=== PATIENT | female | born 1955 | race Hispanic/Latino ===

== ENCOUNTER 2020-02-13 14:25 | Emergency (ER) | payer OTHER ==
--- NOTE | 2020-02-13 15:38 | ER ---
Nurse's Notes [facility] Name: Linnea Morse Age: 65 yrs Sex: Female : 1955 Arrival Date: 02/13/2020 Time: 14:25 Bed 6 Private MD: Diagnosis: Laceration without foreign body of left thumb with damage to nail-avulsion Presentation: 02/12 14:47 Chief complaint: Patient states: Laceration to tip of L thumb that occurred 2-3 hours ss ago. Pt tried to stop the bleeding at home with a pressure dressing, but reports as soon as she took it off it would start to bleed again. Coronavirus screen: Client denies travel out of the [place] in the last 14 days. Ebola Screen: Patient denies exposure to infectious person. Patient denies travel to an Ebola-affected area in the 21 days before illness onset. Initial Sepsis Screen: Does the patient meet any 2 criteria? No. Patient's initial sepsis screen is negative. Does the patient have a suspected source of infection? No. Patient's initial sepsis screen is negative. Risk Assessment: Do you want to hurt yourself or someone else? Patient reports no desire to harm self or others. Onset of symptoms was February 13, 2020. 14:47 Method Of Arrival: Ambulatory ss 14:47 Acuity: PETROS 4 ss Historical: - Allergies: 14:48 Codeine; ss - Immunization history:: Adult Immunizations up to date, Last tetanus immunization: < 10 years ago. - Social history:: Smoking status: Patient denies any tobacco usage or history of. Screenin:50 Abuse screen: Denies threats or abuse. Nutritional screening: No deficits noted. tw2 Tuberculosis screening: No symptoms or risk factors identified. Fall Risk None identified. Assessment: 15:24 General: Appears in no apparent distress. slender, well groomed, Behavior is calm, tw2 cooperative, appropriate for age. Pain: Denies pain. Neuro: Level of Consciousness is awake, alert, obeys commands, Oriented to person, place, time, situation. Cardiovascular: Patient's skin is warm and dry. Respiratory: Airway is patent Respiratory effort is even, unlabored, Respiratory pattern is regular, symmetrical. GI: No signs and/or symptoms were reported involving the gastrointestinal system. : No signs and/or symptoms were reported regarding the genitourinary system. EENT: No signs and/or symptoms were reported regarding the EENT system. Derm: No signs and/or symptoms reported regarding the dermatologic system. Musculoskeletal: Circulation, motion, and sensation intact. Range of motion: intact in all extremities. Injury Description: Laceration sustained to left hand and dorsal aspect of distal phalanx of left thumb. 15:59 Reassessment: Patient appears in no apparent distress at this time. No changes from tw2 previously documented assessment. Patient and/or family updated on plan of care and expected duration. Pain level reassessed. Patient is alert, oriented x 3, equal unlabored respirations, skin warm/dry/pink. Vital Signs: 14:47 BP 138 / 94; Pulse 64; Resp 14; Temp 98.3(TE); Pulse Ox 99% on R/A; Weight 64.41 kg; Height 5 ft. 4 in. (162.56 cm); Pain 1/10; 15:59 BP 126 / 82; Pulse 61; Resp 16; Pulse Ox 100% on R/A; tw2 14:47 Body Mass Index 24.37 (64.41 kg, 162.56 cm) ED Course: 14:25 Patient arrived in ED. ag5 14:48 Triage completed. 14:48 Arm band placed on right wrist. 15:25 Bed in low position. Call light in reach. Pulse ox on. NIBP on. tw2 15:26 Yelena Stout [facility]-C [facility]. kb 15:26 Harjeet Arizmendi MD is Attending Physician. kb 15:48 Janessa West RN is Primary Nurse. tw2 15:59 No provider procedures requiring assistance completed. Patient did not have IV access tw2 during this emergency room visit. Administered Medications: No medications were administered Outcome: 15:37 Discharge ordered by . kb 15:59 Discharged to home ambulatory. tw2 15:59 Condition: stable 15:59 Discharge instructions given to patient, Instructed on discharge instructions, follow up and referral plans. Demonstrated understanding of instructions, follow-up care, wound care. 15:59 Patient left the ED. tw2 Signatures: Yelena Stout FNP-C FNP-Ckb Smirch, Shelby, RN RN Janessa West RN RN tw2 Shaun Kendrick ag5
--- NOTE | 2020-02-13 15:38 | EDPHYS ---
Physician Documentation [facility] Name: Linnea Morse Age: 65 yrs Sex: Female : 1955 Arrival Date: 02/13/2020 Time: 14:25 Bed 6 Private MD: ED Physician Harjeet Arizmendi HPI: 02/12 15:32 This 65 yrs old Female presents to ER via Ambulatory with complaints of Finger kb Laceration. 15:34 The patient has a laceration related to: cooking, from a knife, occurred at home, and kb there are no complicating factors. The injury was accidental. The laceration(s) is(are) located on the dorsal aspect of distal phalanx of left thumb. Onset: The symptoms/episode began/occurred this morning. Associated signs and symptoms: Pertinent positives: heavy bleeding, Pertinent negatives: deformity, dizziness, loss of consciousness, numbness distal to injury, suspected foreign body. The patient has not experienced similar symptoms in the past. The patient has not recently seen a physician. Pt reports she accidentally cut a piece of her finger off with a knife this morning. Held pressure for 20 minutes but the bleeding didn't stop so she came in.. Historical: - Allergies: 14:48 Codeine; ss - Immunization history:: Adult Immunizations up to date, Last tetanus immunization: < 10 years ago. - Social history:: Smoking status: Patient denies any tobacco usage or history of. ROS: 15:32 Constitutional: Negative for fever, chills, and weight loss, Cardiovascular: Negative kb for chest pain, palpitations, and edema, Respiratory: Negative for shortness of breath, cough, wheezing, and pleuritic chest pain, Abdomen/GI: Negative for abdominal pain, nausea, vomiting, diarrhea, and constipation, MS/Extremity: Negative for injury and deformity, Neuro: Negative for headache, weakness, numbness, tingling, and seizure. 15:32 Skin: Positive for laceration(s), of the dorsal aspect of distal phalanx of left thumb. Exam: 15:32 Constitutional: This is a well developed, well nourished patient who is awake, alert, kb and in no acute distress. Head/Face: Normocephalic, atraumatic. Chest/axilla: Normal chest wall appearance and motion. Nontender with no deformity. No lesions are appreciated. Cardiovascular: Regular rate and rhythm with a normal S1 and S2. No gallops, murmurs, or rubs. Normal PMI, no JVD. No pulse deficits. Respiratory: Lungs have equal breath sounds bilaterally, clear to auscultation and percussion. No rales, rhonchi or wheezes noted. No increased work of breathing, no retractions or nasal flaring. Abdomen/GI: Soft, non-tender, with normal bowel sounds. No distension or tympany. No guarding or rebound. No evidence of tenderness throughout. MS/ Extremity: Pulses equal, no cyanosis. Neurovascular intact. Full, normal range of motion. Neuro: Awake and alert, GCS 15, oriented to person, place, time, and situation. Cranial nerves II-XII grossly intact. Motor strength 5/5 in all extremities. Sensory grossly intact. Cerebellar exam normal. Normal gait. 15:32 Skin: injury, avulsion(s), a small of the dorsal aspect of distal phalanx of left thumb. Vital Signs: 14:47 BP 138 / 94; Pulse 64; Resp 14; Temp 98.3(TE); Pulse Ox 99% on R/A; Weight 64.41 kg; ss Height 5 ft. 4 in. (162.56 cm); Pain 1/10; 15:59 BP 126 / 82; Pulse 61; Resp 16; Pulse Ox 100% on R/A; tw2 14:47 Body Mass Index 24.37 (64.41 kg, 162.56 cm) ss MDM: 15:26 Patient medically screened. kb 15:34 Data reviewed: vital signs, nurses notes. Data interpreted: Pulse oximetry: on room air kb is 99 %. Interpretation: normal. Counseling: I had a detailed discussion with the patient and/or guardian regarding: the historical points, exam findings, and any diagnostic results supporting the discharge/admit diagnosis, the need for outpatient follow up, a family practitioner, to return to the emergency department if symptoms worsen or persist or if there are any questions or concerns that arise at home. 15:35 ED course: Pressure dressing from triage removed, no active bleeding noted. Surgicel kb and tube gauze applied. Pt educated to keep in place until tomorrow.. Administered Medications: No medications were administered Disposition: 17:33 Co-signature as Attending Physician, Harjeet Arizmendi MD. rn Disposition: 02/13/20 15:37 Discharged to Home. Impression: Laceration without foreign body of left thumb with damage to nail - avulsion. - Condition is Stable. - Discharge Instructions: Deep Skin Avulsion. - Medication Reconciliation Form, Thank You Letter, Antibiotic Education, Prescription Opioid Use form. - Follow up: Emergency Department; When: As needed; Reason: Worsening of condition. Follow up: Private Physician; When: 2 - 3 days; Reason: Recheck today's complaints, Continuance of care, Re-evaluation by your physician. Signatures: Yelena Stout, MARINE RESOURCE ECONOMIST-C MARINE RESOURCE ECONOMIST-Ckb Harjeet Arizmendi MD MD rn Smirch, Shelby, RN RN ss Wise, Tara, RN RN tw2 Corrections: (The following items were deleted from the chart) 15:59 15:37 02/13/2020 15:37 Discharged to Home. Impression: Laceration without foreign body tw2 of left thumb with damage to nail - avulsion. Condition is Stable. Forms are Medication Reconciliation Form, Thank You Letter, Antibiotic Education, Prescription Opioid Use. Follow up: Emergency Department; When: As needed; Reason: Worsening of condition. Follow up: Private Physician; When: 2 - 3 days; Reason: Recheck today's complaints, Continuance of care, Re-evaluation by your physician. kb
[2020-02-13 16:04] VITALS: TEMP 98.3
[2020-02-13 16:05] VITALS: BP 126/82; O2SAT 100
== END 2020-02-13 15:59 | disposition home or self-care (01) ==
LOC: ER 14:25
DX: S61.112A Laceration without foreign body of left thumb with damage to nail, initial encounter (principal); W26.0XXA Contact with knife, initial encounter; Y93.G3 Activity, cooking and baking; Y92.000 Kitchen of unspecified non-institutional (private) residence as the place of occurrence of the external cause; Z88.5 Allergy status to narcotic agent
CPT/HCPCS: 99283

== ENCOUNTER 2020-05-27 15:08 | Emergency (ER) | payer SELFPAY ==
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
[2020-05-27 19:51] VITALS: BP 152/90; TEMP 98; O2SAT 99
== END 2020-05-27 19:47 | disposition left against medical advice (07) ==
LOC: ER 15:08
DX: Z53.21 Procedure and treatment not carried out due to patient leaving prior to being seen by health care provider (principal)
CPT/HCPCS: 99281

== ENCOUNTER 2021-02-28 13:28 | Emergency (ER) | payer OTHER ==
[2021-02-28] MEDS ORDERED: LIDOCAINE 2% MPF 5 ML VIAL ONE (14:23)
--- NOTE | 2021-02-28 14:42 | ER ---
Nurse's Notes [facility] Name: Linnea Morse Age: 66 yrs Sex: Female : 1955 Arrival Date: 02/28/2021 Time: 13:30 Bed 27 Private MD: Diagnosis: Laceration without foreign body of left index finger without damage to nail Presentation: 02/28 13:40 Chief complaint: Patient states: "I was cutting a carrot with a knife and it slipped vg1 and cut my finger". Incident occurred about 10 minutes ago. Left index finger bleeding; site cleaned and bandaged. Coronavirus screen: Vaccine status: Patient reports being unvaccinated. Ebola Screen: Patient negative for fever greater than or equal to 101.5 degrees Fahrenheit, and additional compatible Ebola Virus Disease symptoms. Initial Sepsis Screen: Does the patient meet any 2 criteria? No. Patient's initial sepsis screen is negative. Does the patient have a suspected source of infection? No. Patient's initial sepsis screen is negative. Risk Assessment: Do you want to hurt yourself or someone else? Patient reports no desire to harm self or others. Onset of symptoms was February 28, 2021. 13:40 Method Of Arrival: Ambulatory vg1 13:40 Acuity: PETROS 4 vg1 Triage Assessment: 13:42 General: Appears in no apparent distress. comfortable, Behavior is calm, cooperative. vg1 Pain: Complains of pain in palmar aspect of distal phalanx of left index finger Pain currently is 4 out of 10 on a pain scale. Injury Description: Laceration sustained to palmar aspect of distal phalanx of left index finger. Historical: - Allergies: 13:42 Codeine; vg1 - Home Meds: 13:42 None [Active]; vg1 - PMHx: 13:42 None; vg1 - PSHx: 13:42 None; vg1 - Immunization history:: Adult Immunizations up to date, Client reports having NOT received the Covid vaccine. - Social history:: Smoking status: Patient denies any tobacco usage or history of. Screenin:43 Abuse screen: Denies threats or abuse. Nutritional screening: No deficits noted. vg1 Tuberculosis screening: No symptoms or risk factors identified. Fall Risk No fall in past 12 months (0 pts). No secondary diagnosis (0 pts). No IV (0 pts). Ambulatory Aid- None/Bed Rest/Nurse Assist (0 pts). Gait- Normal/Bed Rest/Wheelchair (0 pts) Mental Status- Oriented to own ability (0 pts). Total Alcala Fall Scale indicates No Risk (0-24 pts). Vital Signs: 13:40 BP 163 / 84; Pulse 70; Resp 16; Temp 98.0; Pulse Ox 99% ; Weight 65.77 kg; Height 5 ft. vg1 3 in. (160.02 cm); Pain 4/10; 13:40 Body Mass Index 25.69 (65.77 kg, 160.02 cm) vg1 ED Course: 13:30 Patient arrived in ED. rg4 13:34 Kierra Cueva, RN is Primary Nurse. tr6 13:38 Keegan Julian NP is PHCP. pm1 13:39 Harjeet Arizmendi MD is Attending Physician. pm1 13:42 Triage completed. vg1 13:42 Arm band placed on. vg1 13:43 Patient has correct armband on for positive identification. Bed in low position. Call vg1 light in reach. Side rails up X 1. Adult w/ patient. 13:43 Patient did not have IV access during this emergency room visit. vg1 14:42 Flavio Dominguez MD is Referral Physician. pm1 14:55 No provider procedures requiring assistance completed. tr6 Administered Medications: 14:54 Drug: Lidocaine (1 %) 5 ml {Note: administered by MIGUE Julian.} Volume: 5 ml; Route: tr6 Infiltration; Outcome: 14:41 Discharge ordered by . pm1 14:55 Discharged to home ambulatory. tr6 14:55 Condition: improved 14:55 Discharge instructions given to patient, family, Instructed on discharge instructions, follow up and referral plans. medication usage, safety practices, Demonstrated understanding of instructions, follow-up care, medications, Prescriptions given X 2. 14:56 Patient left the ED. tr6 Signatures: Keegan Julian NP HAND INSERTER OPERATOR pm1 Marta Cardenas rg4 Leilani Cardenas RN RN vg1 Kierra Cueva RN RN tr6
--- NOTE | 2021-02-28 14:43 | EDPHYS ---
Physician Documentation [facility] Name: Linnea Morse Age: 66 yrs Sex: Female : 1955 Arrival Date: 02/28/2021 Time: 13:30 Bed 27 Private MD: ED Physician Harjeet Arizmendi HPI: 02/28 14:41 This 66 yrs old Female presents to ER via Ambulatory with complaints of Finger pm1 Laceration. 14:41 The patient or guardian reports a laceration. The complaints affect the left hand and pm1 palmar aspect of distal phalanx of left index finger. Context: The problem was sustained at home, resulted from Accidental finger laceration while cutting carrots. Onset: The symptoms/episode began/occurred just prior to arrival. Modifying factors: The symptoms are alleviated by pressure to area, the symptoms are aggravated by nothing. Associated signs and symptoms: Pertinent negatives: cyanosis distally, decreased sensation distally, numbness distally, tingling distally. Severity of symptoms: in the emergency department the symptoms have improved. The patient has not experienced similar symptoms in the past. The patient has not recently seen a physician. Patient reports tetanus less than 5 years. Historical: - Allergies: 13:42 Codeine; vg1 - Home Meds: 13:42 None [Active]; vg1 - PMHx: 13:42 None; vg1 - PSHx: 13:42 None; vg1 - Immunization history:: Adult Immunizations up to date, Client reports having NOT received the Covid vaccine. - Social history:: Smoking status: Patient denies any tobacco usage or history of. ROS: 14:41 Constitutional: Negative for fever, chills, and weight loss, Cardiovascular: Negative pm1 for chest pain, palpitations, and edema, Respiratory: Negative for shortness of breath, cough, wheezing, and pleuritic chest pain, MS/Extremity: Negative for injury and deformity. 14:41 Neuro: Negative for headache, weakness, numbness, tingling, and seizure. 14:41 Skin: Positive for laceration(s), of the palmar aspect of distal phalanx of left index finger. 14:41 All other systems are negative. Exam: 14:41 Constitutional: This is a well developed, well nourished patient who is awake, alert, pm1 and in no acute distress. Head/Face: Normocephalic, atraumatic. 14:41 Eyes: Exam is negative for acute changes, Extraocular movements: no acute changes, Sclera: no acute changes, icterus, is not appreciated. 14:41 ENT: Exam is negative for acute changes, Mouth: no acute changes, Lips: normal, moist, Oral mucosa: normal, pink and intact, moist. 14:41 Cardiovascular: Exam negative for acute changes, Rate: normal, Rhythm: regular, Pulses: no pulse deficits are appreciated. 14:41 Respiratory: Exam negative for acute changes, respiratory distress, shortness of breath. 14:41 Musculoskeletal/extremity: Extremities: grossly normal except: noted in the palmar aspect of distal phalanx of left index finger: laceration, There is no evidence of decreased ROM, deformity, Circulation is intact in all extremities. 14:41 Skin: Appearance: normal except for affected area, injury, laceration(s), the wound is approximately 1.5 cm(s), of the palmar aspect of distal phalanx of left index finger. Vital Signs: 13:40 BP 163 / 84; Pulse 70; Resp 16; Temp 98.0; Pulse Ox 99% ; Weight 65.77 kg; Height 5 ft. vg1 3 in. (160.02 cm); Pain 4/10; 13:40 Body Mass Index 25.69 (65.77 kg, 160.02 cm) vg1 Laceration: 14:39 Wound Repair of 1.5cm ( 0.6in ) subcutaneous laceration to left hand and palmar aspect pm1 of distal phalanx of left index finger. Linear shaped.. Distal neuro/vascular/tendon intact. Anesthesia: Digital block administered with 1 mls of 1% lidocaine. Wound prep: Extensive cleansing with hibiclenz by tn, Wound irrigation with saline by tn, Wound explored extensively, Copious irrigation. Skin closed with 4 4-0 Prolene using simple sutures and sterile technique. Dressed with Neosporin, 4x4's. Patient tolerated well. MDM: 13:39 Patient medically screened. pm1 14:40 Data reviewed: vital signs. Data interpreted: Pulse oximetry: on room air is 99 %. pm1 Interpretation: normal. Counseling: I had a detailed discussion with the patient and/or guardian regarding: the historical points, exam findings, and any diagnostic results supporting the discharge/admit diagnosis, the need for outpatient follow up, to return to the emergency department if symptoms worsen or persist or if there are any questions or concerns that arise at home. 02/28 13:56 Order name: Dressing - Wound; Complete Time: 14:54 pm1 02/28 13:56 Order name: Gloves, Sterile; Complete Time: 14:54 pm1 02/28 13:56 Order name: Prolene, Sutures; Complete Time: 14:54 pm1 02/28 13:56 Order name: Setup Suture Tray; Complete Time: 13:57 pm1 Administered Medications: 14:54 Drug: Lidocaine (1 %) 5 ml {Note: administered by MIGUE Julian.} Volume: 5 ml; Route: tr6 Infiltration; Disposition Summary: 02/28/21 14:41 Discharge Ordered Location: Home pm1 Problem: new pm1 Symptoms: have improved pm1 Condition: Stable pm1 Diagnosis - Laceration without foreign body of left index finger without damage to nail pm1 Followup: pm1 - With: Emergency Department - When: As needed - Reason: Worsening of condition Followup: pm1 - With: Private Physician - When: 10 - 14 days - Reason: Recheck today's complaints, Continuance of care, Staple/Suture removal, Re-evaluation by your physician Followup: pm1 - With: Flavio Dominguez MD - When: 2 - 3 days - Reason: Wound Recheck, Recheck today's complaints, Continuance of care, Re-evaluation by your physician Discharge Instructions: - Discharge Summary Sheet pm1 - Laceration Care, Adult pm1 Forms: - Medication Reconciliation Form pm1 - Thank You Letter pm1 - Antibiotic Education pm1 - Prescription Opioid Use pm1 Prescriptions: - Cephalexin 500 mg Oral Capsule - take 1 capsule by ORAL route every 12 hours for 10 days; 20 capsule; Refills: pm1 0, Product Selection Permitted Addendum: 03/04/2021 00:02 Co-signature as Attending Physician, Harjeet Arizmendi MD I agree with the assessment and r n plan of care. Attestation: The patient's history, exam findings, diagnostics, and a summary of any interventions or procedures was reviewed in detail with Keegan Julian NP. Signatures: Harjeet Arizmendi MD MD rn Marinas, Patrick, NP NP pm1 Leilani Cardenas RN RN vg1 Kierra Cueva, RN RN tr6
[2021-02-28 15:00] VITALS: BP 163/84; TEMP 98; O2SAT 99
== END 2021-02-28 14:56 | disposition home or self-care (01) ==
LOC: ER 13:28
PROC: 0HQGXZZ Repair Left Hand Skin, External Approach (ICD-10-PCS; principal; 2021-02-28)
DX: S61.211A Laceration without foreign body of left index finger without damage to nail, initial encounter (principal); W26.0XXA Contact with knife, initial encounter; Y93.G1 Activity, food preparation and clean up; Y92.009 Unspecified place in unspecified non-institutional (private) residence as the place of occurrence of the external cause; Z88.6 Allergy status to analgesic agent
CPT/HCPCS: 99283

== ENCOUNTER → 2023-05-17 | Day surgery (SDC) | payer BC, OTHER ==
--- NOTE | 2023-05-17 13:22 | RAD REPORT ---
EXAM DESCRIPTION: Ultrasound-guided vacuum assisted right breast core biopsy CLINICAL HISTORY: R92.8 COMPARISON: Follow Up Breast Axilla Comp dated 03/17/2023 FINDINGS: Informed consent was obtained and time-out procedure was performed. The patient's right breast was prepped and draped in the usual sterile fashion. 1% lidocaine was used for local anesthetic purposes. Initial scanning again demonstrated the taller than wide hypoechoic structure in the central aspect o f the breast approximately at 2 o'clock position. A small skin georgie was performed. Utilizing aseptic technique and ultrasound guidance, a 12 gauge vacuum assisted core biopsy device was used to obtain 3 core specimens through the mass of interest. A post biopsy clip was then placed. All collected material was sent for pathology. Patient tolerated procedure well. There was mild bleed ing from the incision during the procedure, less than 10 mL. IMPRESSION: Successful ultrasound guided vacuum assisted right breast mass biopsy, with postprocedur al clip placement.
== END ==
LOC: DS 08:47
PROVIDERS: ATTEND Internal Medicine
DX: R92.8 Other abnormal and inconclusive findings on diagnostic imaging of breast (principal)
CPT/HCPCS: 19083; 88305

== ENCOUNTER 2024-08-10 14:52 | Emergency (ER) | payer OTHER ==
--- OUTSIDE RECORDS SUMMARY | 2024-08-10 14:55 | XMS REPORT | Continuity of Care Document ---
Author Name Unknown Address [address] [facility] [address] [place] [address] [facility] Address [address] [facility] [address] [place] [address] Care Team Providers Care Telecine Operator Name Role Phone JORGE CANALES Primary Care Physician Unavailab le RADIOLOGY Attending Clinician Unavailable Radiology Attending Clinician Unavailable JORGE CANALES Admitting Clinician Unavailable Payers Payer Name Policy Type Policy Number Effective Date Expirati on Date Source [facility] [place] [id number] 2023 00:00:00 Allergies, Adverse Reactions, Alerts Allergy Name Allergy Type Status Severity Reaction(s) Onset Date Inactive Date Treating Clinician Comments Source NO KNOWN ALLERGIE S Drug Class Active [facility] Social History Social Habit Start Date Stop Date Quantity Comments Source Sexual orientation U [facility] Sex assigned at 1955 00:00:00 1955 00:00:00 [facility] Smoking Status Start Date Stop Date Source Tobacco smoking consumption unknown [facility] Procedures Procedure Date / Time Performed Performing Clinician Source BI SCREENING TOMOSYNTHESIS BILATERAL 2024-02-29 14:52:03 Jorge Canales [facility] Encounters Start Date/Time End Date/Time Encounter Type Admission Type Attending Clinicians Care Facility Care Department Encounter ID Source 2024-02-29 07:53:23 2024-02-29 23:59:00 Outpatient R RADIOLOGY [facility] [id number] [facility] 2024-02-29 07:53:23 2024-02-29 23:59:00 Hospital Encounter Radiology Radiology [facility] [id number] [facility] Results Test Description Test Time Test Comments Results Resul t Comments Source BI SCREENING TOMOSYNTHESIS BILATERAL 2024-02-20 02:27:54 Examination:BI SCREENING TOMOSYNTHESIS BILATERAL History:Patient is 69 year old and is seen for: ?Screening mammogram. Computer-aided detection (CAD) utilized. Comparisons : Outside prior imaging was not available at the time of this interpretation. Findings:The breasts are heterogeneously dense, which may obscure small masses. LeftThere is no evidence of suspicious masses, calcifications, or other abnormal findings in the left breast. RightThere is no evidence of suspicious masses, calcifications, or other abnormal findings in the right breast.The patient has marker from previous needle biopsy. Impression:No mammographic evidence of malignancy in either breast. Recommendation:Pamela sanchez mammographic follow-up - Bilateral BI-RADS Category:Left 1 - NegativeRight 2 - Benign [facility]
[2024-08-10] MEDS ORDERED: TETRACAINE HCL 0.5% 4ML OPTH ONE (15:15)
[2024-08-10] MEDS ORDERED: FLUORESCEIN SODIUM 1 MG/WRAP ONE (15:16)
--- NOTE | 2024-08-10 15:29 | ER ---
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 Rinsed it well, ll1 fells better now. Coronavirus screen: Client denies travel out of the [place] in the last 14 days. At this time, the client does not indicate any symptoms associated with coronavirus-19. Ebola Screen: Patient denies travel to an Ebola-affected area in the 21 days before illness onset. Initial Sepsis Screen: Does the patient meet any 2 criteria? No. Patient's initial sepsis screen is negative. Does the patient have a suspected source of infection? No. Patient's initial sepsis screen is negative. Risk Assessment: Do you want to hurt yourself or someone else? Patient reports no desire to harm self or others. Onset of symptoms was August 10, 2024. 15:03 Method Of Arrival: Ambulatory ll1 15:03 Acuity: PETROS 3 ll1 Triage Assessment: 15:03 General: Appears uncomfortable, Behavior is calm, cooperative, appropriate for age. ll1 Pain: Complains of pain in left eye Quality of pain is described as aching. 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 Historical: - Allergies: 15:03 Codeine; ll1 - PMHx: 15:03 None; ll1 - PSHx: 15:03 Cholecystectomy; ll1 - Immunization history:: Adult Immunizations up to date. - Infectious Disease History:: Denies. - Social history:: Smoking status: Patient denies any tobacco usage or history of. Screenin:31 [facility] ED Fall Risk Assessment (Adult) History of falling in the last 3 months, ap3 including since admission No falls in past 3 months (0 pts) Confusion or Disorientation No (0 pts) Intoxicated or Sedated No (0 pts) Impaired Gait No (0 pts) Mobility Assist Device Used No (0 pt) Altered Elimination No (0 pt) Score/Fall Risk Level 0 - 2 = Low Risk Oriented to surroundings, Maintained a safe environment, Educated pt \T\ family on fall prevention, incl call for assistance when getting out of bed, Assessed \T\ reinforced patient's understanding of fall precautions, Hourly rounding (assess needs \T\ fall precautionary measures) done, Used ambulatory aids as needed (educated on \T\ assisted with). Abuse screen: Denies threats or abuse. Nutritional screening: No deficits noted. Tuberculosis screening: No symptoms or risk factors identified. Assessment: 15:15 General: Appears in no apparent distress. 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 Rinsed it well, fells better now. Pain: Complains of pain in right eye Pain does not radiate. Pain currently is 3 out of 10 on a pain scale. Quality of pain is described as tender, Pain began suddenly, 3 hours ago. Is continuous. Neuro: Level of Consciousness is awake, alert, obeys commands, Oriented to person, place, time, situation, Appropriate for age. Cardiovascular: Patient's skin is warm and dry. Respiratory: Airway is patent Respiratory effort is even, unlabored, Respiratory pattern is regular, symmetrical. GI: No signs and/or symptoms were reported involving the gastrointestinal system. : No signs and/or symptoms were reported regarding the genitourinary system. EENT: Eyes are tearing on right eye. Derm: Skin is intact, is healthy with good turgor, Skin is pink, warm \T\ dry. Musculoskeletal: No signs and/or symptoms reported regarding the musculoskeletal system. Vital Signs: 15:03 BP 150 / 96; Pulse 63; Resp 16; Temp 98.2; Pulse Ox 100% ; Weight 68.95 kg; Height 5 ll1 ft. 0 in. ; Pain 9/10; 15:15 BP 142 / 86; Pulse 64; Resp 15; Temp 98.1; Pulse Ox 98% ; me1 15:03 Body Mass Index 29.69 (68.95 kg, 152.4 cm) ll1 15:03 Pain Scale: Adult ll1 ED Course: 14:57 Patient arrived in ED. sj2 15:04 Triage completed. ll1 15:04 Arm band placed on. ll1 15:06 Arnoldo Garcia FNP-C [facility]. [facility]5 15:06 Kelly Mac MD is Attending Physician. dr5 15:31 Assist provider with eye exam of right eye. Patient did not have IV access during this ap3 emergency room visit. 15:32 Placed in gown. Bed in low position. Call light in reach. Provided Education on: ap3 discharge instructions. Administered Medications: 15:32 Drug: Tetracaine Ophthalmic Drops 0.5 % 1 drops Ophthalmic once {Note: by LISA pettit ap3 .} Route: Ophthalmic; Site: right eye; Medication: 15:32 VIS not applicable for this client. ap3 Outcome: 15:28 Discharge ordered by . dr5 15:32 Discharged to home ap3 15:32 Condition: good 15:32 Discharge instructions given to patient, Instructed on discharge instructions, follow up and referral plans. medication usage, Demonstrated understanding of instructions, follow-up care, medications, Prescriptions given X 1, 15:33 Patient left the ED. 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 Rinsed it me1 well, fells better now ll1
[2024-08-10 16:15] VITALS: BP 150/96; TEMP 98.2; O2SAT 100
--- NOTE | 2024-08-11 15:33 | EDPHYS ---
Physician Documentation [facility] Name: Linnea Morse Age: 69 yrs Sex: Female : 1955 Arrival Date: 08/10/2024 Time: 14:52 Bed 16 Private MD: ED Physician Kelly Mac HPI: 08/10 17:41 This 69 yrs old Female presents to ER via Ambulatory with complaints of dr5 Chemical Exposure In Eye - BLEACH GOT IN EYE. 17:41 The patient is experiencing to the right eye, caused by chemicals. 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 Patient rinsed eye prior to arrival for about 10 minutes. Patient states that her eye is feeling much better but just wants to get checked out to make sure.. Historical: - Allergies: 15:03 Codeine; ll1 - PMHx: 15:03 None; ll1 - PSHx: 15:03 Cholecystectomy; ll1 - Immunization history:: Adult Immunizations up to date. - Infectious Disease History:: Denies. - Social history:: Smoking status: Patient denies any tobacco usage or history of. ROS: 17:41 Constitutional: as per hpi dr5 Exam: 17:41 Constitutional: This is a well developed, well nourished patient who is awake, alert, dr5 and in no acute distress. Head/Face: Normocephalic, atraumatic. Eyes: Pupils equal round and reactive to light, extra-ocular motions intact. Lids and lashes normal. Conjunctiva and sclera are non-icteric and not injected. Cornea within normal limits. Periorbital areas with no swelling, redness, or edema. Neck: Trachea midline, no thyromegaly or masses palpated, and no cervical lymphadenopathy. Supple, full range of motion without nuchal rigidity, or vertebral point tenderness. No Meningismus. Chest/axilla: Normal chest wall appearance and motion. Nontender with no deformity. No lesions are appreciated. Cardiovascular: Regular rate and rhythm with a normal S1 and S2. Normal PMI, no JVD. No pulse deficits. Respiratory: Lungs have equal breath sounds bilaterally, clear to auscultation. No rales, rhonchi or wheezes noted. No increased work of breathing, no retractions or nasal flaring. Back: No spinal tenderness. No costovertebral tenderness. Full range of motion. Neuro: Awake and alert, GCS 15, oriented to person, place, time, and situation. Cranial nerves II-XII grossly intact. Motor strength 5/5 in all extremities. Sensory grossly intact. Cerebellar exam normal. Normal gait. 17:41 Eyes: Periorbital structures: appear normal, Pupils: no acute changes, equal, round, and reactive to light and accomodation, Extraocular movements: intact throughout, Conjunctiva: normal, no acute changes, Corneas: abrasion, that is small, at 9 o'clock, Vital Signs: 15:03 BP 150 / 96; Pulse 63; Resp 16; Temp 98.2; Pulse Ox 100% ; Weight 68.95 kg; Height 5 ll1 ft. 0 in. ; Pain 9/10; 15:15 BP 142 / 86; Pulse 64; Resp 15; Temp 98.1; Pulse Ox 98% ; me1 15:03 Body Mass Index 29.69 (68.95 kg, 152.4 cm) ll1 15:03 Pain Scale: Adult ll1 Procedures: 17:41 Eye Exam: Tetracaine and fluorescein strip used. dr5 MDM: 15:06 Medical Screening Exam initiated dr5 17:41 Differential diagnosis: Corneal abrasion of Corneal ulcer of Foreign body in. Data dr5 reviewed: vital signs, nurses notes. I considered the following discharge prescriptions or medication management in the emergency department Medications were administered in the Emergency Department. See MAR. Care significantly affected by the following Social Determinants of Health: Poor access to healthcare and/or lack of insurance, Poor access to transportation, Problems related to employment. Counseling: I had a detailed discussion with the patient and/or guardian regarding the historical points, exam findings, and any diagnostic results supporting the discharge/admit diagnosis, the presence of at least one elevated blood pressure reading (>120/80) during this emergency department visit, the need for outpatient follow up, for definitive care, an opthalmologist, a family practitioner, to return to the emergency department if symptoms worsen or persist or if there are any questions or concerns that arise at home. ED course: Patient's eye exam is reassuring. Will give antibiotic eyedrops and have patient follow-up with eye this week. Recommended follow-up with primary care doctor this week as well. All questions answered. 08/10 15:06 Order name: Eye Tray; Complete Time: 15:31 dr5 08/10 15:06 Order name: Fluoresene Opth strip; Complete Time: 15:29 dr5 Administered Medications: 15:32 Drug: Tetracaine Ophthalmic Drops 0.5 % 1 drops Ophthalmic once {Note: by LISA pettit ap3 .} Route: Ophthalmic; Site: right eye; Disposition Summary: 08/10/24 15:28 Discharge Ordered Notes: Location: Home dr5 Condition: Stable dr5 Diagnosis - Contact with and (suspected) exposure to hazardous, chiefly nonmedicinal, chemicals dr5 - Injury of conjunctiva and corneal abrasion without foreign body, right eye dr5 Followup: dr5 - With: Emergency Department - When: As needed - Reason: Worsening of condition Followup: dr5 - With: Private Physician - When: 1 - 2 days - Reason: Recheck today's complaints, Continuance of care, Re-evaluation by your physician Discharge Instructions: - Discharge Summary Sheet dr5 - Corneal Abrasion dr5 Forms: - Medication Reconciliation Form dr5 - Antibiotic Education dr5 - Patient Portal Instructions dr5 - Leadership Thank You Letter dr5 Prescriptions: - Ocuflox 0.3 % Ophthalmic Drops - instill 2 drops OPHTHALMIC route every 6 hours for 2 days; 15 milliliter; dr5 Refills: 0, Product Selection Permitted Signatures: Avis Platt RN RN ap3 Oscar Wu RN RN ll1 Arnoldo Garcia, LISA-C LISA-Cdr5 Corrections: (The following items were deleted from the chart) 15:32 15:28 Injury of conjunctiva and corneal abrasion without foreign body, left eye dr5 dr5
== END 2024-08-10 15:33 | disposition home or self-care (01) ==
LOC: ER 14:52
DX: S05.01XA Injury of conjunctiva and corneal abrasion without foreign body, right eye, initial encounter (principal); Z77.098 Contact with and (suspected) exposure to other hazardous, chiefly nonmedicinal, chemicals
CPT/HCPCS: 99284

== ENCOUNTER 2025-01-16 06:44 | Emergency (ER) | payer OTHER ==
--- OUTSIDE RECORDS SUMMARY | 2025-01-16 06:46 | XMS REPORT | Continuity of Care Document ---
Author Name Unknown Address [address] [facility] [address] [place] [address] [facility] [place] Address [address] [facility] [address] [place] [address] Care Team Providers Care Chopper Feeder Name Role Phone JORGE CANALES Primary Care Physician Unavailab le RADIOLOGY Attending Clinician Unavailable Radiology Attending Clinician Unavailable JORGE CANALES Admitting Clinician Unavailable Payers Payer Name Policy Type Policy Number Effective Date Expirati on Date Source [facility] [id number] 2023 00:00:00 Allergies, Adverse Reactions, Alerts Allergy Name Allergy Type Status Severity Reaction(s) Onset Date Inactive Date Treating Clinician Comments Source NO KNOWN ALLERGIE S Drug Class Active [facility] Social History Social Habit Start Date Stop Date Quantity Comments Source Sexual orientation U [facility] Sex assigned at 1955 00:00:00 1955 00:00:00 [facility] Smoking Status Start Date Stop Date Source Tobacco smoking consumption unknown [facility] Procedures Procedure Date / Time Performed Performing Clinician Source BI SCREENING TOMOSYNTHESIS BILATERAL 2024-02-29 14:52:03 Jorge Canales [facility] Encounters Start Date/Time End Date/Time Encounter Type Admission Type Attending Clinicians Care Facility Care Department Encounter ID Source 2024-02-29 07:53:23 2024-02-29 23:59:00 Outpatient R RADIOLOGY [facility] [id number] [facility] 2024-02-29 07:53:23 2024-02-29 23:59:00 Hospital Encounter Radiology Radiology [facility] [id number] [facility] Results Test Description Test Time Test [...] Category:Left 1 - NegativeRight 2 - Benign [facility]
[2025-01-16 07:46] LABS: Absolute Lymphocytes (CBC) 1.4 K/uL (0.7-4.9); Hematocrit 41.3 % (36.0-45.0); Hemoglobin 13.9 g/dL (12.0-15.0); MCH 27.3 pg (27.0-35.0); MCHC 33.7 g/dL (32.0-36.0); MCV 80.9 fL (80-100); MPV 8.3 fL (7.6-11.3); Nucleated RBC Absolute Count 0.0 (0-0); Nucleated Red Blood Cells % 0.0 % (0-0); RBC Red Blood Cell Count 5.11 M/uL (3.86-4.86); White Blood Count 9.80 thou/uL (4.3-10.9)
[2025-01-16] MEDS ORDERED: FAMOTIDINE 20 MG/2 ML VIAL IV ONE (07:59)
[2025-01-16] MEDS ORDERED: NA CHLORIDE 0.9% 0 ML ONE (07:59)
[2025-01-16] MEDS ORDERED: ONDANSETRON 4 MG/2 ML VIAL ONE (07:59)
[2025-01-16 08:05] LABS: ALT/SGPT 22.0 U/L (13-56); AST/SGOT 17.0 U/L (15-37); Albumin 3.5 g/dL (3.4-5.0); Albumin/Globulin Ratio 0.9 (1.1-1.8); Alkaline Phosphatase 64.0 U/L (45-117); Anion Gap 8.8 mEq/L (5.0-15.0); BUN Blood Urea Nitrogen 17.0 mg/dL (7-18); Bilirubin Indirect, Calculated 0.6 mg/dL (0.2-0.8); Globulin 3.8 g/dL (2.3-3.5); Glucose Level 111.0 mg/dL (74-106); Lipase 41.0 U/L (13-75); Magnesium 2.0 mg/dL (1.6-2.4); NT PRO-BNP 47.0 pg/mL (<125); Potassium 3.8 mEq/L (3.5-5.1); Troponin High Sensitivity 39.1 pg/mL (<58.9)
[2025-01-16 08:11] LABS: PT Prothrombin Time 12.8 SECONDS (10-13.0); Protime INR 1.14
--- NOTE | 2025-01-16 08:49 | RAD REPORT ---
EXAMINATION: ONE VIEW CHEST XR CLINICAL INDICATION: Female, 69 years old.,ABDOMINAL DISTENTION TECHNIQUE: Frontal chest projection is submitted. Examination is limited by patient positioning and t echnique. COMPARISON: 02/19/2015. FINDINGS: The lungs are well inflated and clear. No pneumothorax or sizable effusion. The heart is normal in s ize. Mediastinal contours are unremarkable. IMPRESSION: No acute intrathoracic abnormalities.
--- NOTE | 2025-01-16 08:55 | RAD REPORT ---
EXAMINATION: CT Abdomen Pelvis W Contrast CLINICAL INDICATION: Female, 69 years old. ABD PAIN TECHNIQUE: CT abdomen and pelvis was performed, after the administration of IV contrast, as per [facility] protocol. Axial, sagittal and coronal reconstructions were obtained. One or more of the following dose reduction techniques were used: Automated exposure control, adjustment of the mA and k V according to patient size, and iterative reconstruction. Unless otherwise specified, incidental findings do not require dedicated imaging follow-up. COMPARISON: No prior exam. FINDINGS: LOWER CHEST: The visualized lung bases are clear. LIVER: Normal in size and contour. Incidentally noted peripheral anterior right lobe 8 mm lesion appr oach fluid density. No suspicious focal lesion. BILIARY SYSTEM: No suspicious abnormalities. SPLEEN: Normal size. No focal lesion. PANCREAS: No mass, ductal dilation, or ga-pancreatic fluid. ADRENALS: Normal; no mass. KIDNEYS: Normal size and contour. Bilateral parapelvic cysts. No radiopaque calculi. No hydronephrosi s. URINARY BLADDER: Unremarkable. GASTROINTESTINAL TRACT: No evidence of free air, significant intra-abdominal free fluid, bowel obstru ction or abscess. APPENDIX: Normal appendix. LYMPH NODES: No lymphadenopathy. MUSCULOSKELETAL: No acute or suspicious osseous abnormality. ADDITIONAL FINDINGS: Fluid distention of the endometrial cavity measuring 1.2 cm in AP dimension, non specific. IMPRESSION: No acute abnormalities seen in the abdomen or pelvis. Incidental findings as above, including nonspecific fluid filling of the endometrial cavity, not well evaluated. Please consider pelvic ultrasound evaluation, as this could be due to an obstructing or segment endometrial lesion or mass.
--- NOTE | 2025-01-16 09:58 | ER ---
Nurse's Notes [facility] Name: Linnea Morse Age: 69 yrs Sex: Female : 1955 Arrival Date: 01/16/2025 Time: 06:44 Bed 6 Private MD: Jorge Be; Roseann Be C Diagnosis: Abdominal tenderness;Nausea with vomiting, unspecified Presentation: 01/16 07:20 Chief complaint: Patient states: abd pain since Monday , n/v started last night. iw Coronavirus screen: At this time, the client does not indicate any symptoms associated with coronavirus-19. Ebola Screen: No symptoms or risks identified at this time. Initial Sepsis Screen: Does the patient meet any 2 criteria? No. Patient's initial sepsis screen is negative. Does the patient have a suspected source of infection? No. Patient's initial sepsis screen is negative. Risk Assessment: Do you want to hurt yourself or someone else? Patient reports no desire to harm self or others. 07:20 Method Of Arrival: Ambulatory iw 07:20 Acuity: PETROS 3 iw Historical: - Allergies: 07:21 Codeine; iw - PSHx: 07:21 Cholecystectomy; iw - Immunization history:: Adult Immunizations. - Infectious Disease History:: Denies. - Social history:: Smoking status: Patient denies any tobacco usage or history of. Screenin:37 [facility] ED Fall Risk Assessment (Adult) History of falling in the last 3 months, iw including since admission No falls in past 3 months (0 pts) Confusion or Disorientation No (0 pts) Intoxicated or Sedated No (0 pts) Impaired Gait No (0 pts) Mobility Assist Device Used No (0 pt) Altered Elimination No (0 pt) Score/Fall Risk Level 0 - 2 = Low Risk Oriented to surroundings, Maintained a safe environment. Abuse screen: Denies threats or abuse. Nutritional screening: No deficits noted. Tuberculosis screening: No symptoms or risk factors identified. Assessment: 07:36 General: Appears in no apparent distress. Behavior is calm, cooperative. Pain: iw Complains of pain in umbilical area Pain currently is 8 out of 10 on a pain scale. Neuro: Level of Consciousness is awake, alert, obeys commands, Oriented to person, place, time, situation, Moves all extremities. Full function. Cardiovascular: Patient's skin is warm and dry. Respiratory: Respiratory effort is even, unlabored, Respiratory pattern is regular, symmetrical. GI: Abdomen is flat, non-distended, Abd is soft X 4 quads Reports indigestion, nausea, vomiting. Derm: Skin is intact, is healthy with good turgor. Musculoskeletal: Range of motion: intact in all extremities. 09:47 Reassessment: Patient appears in no apparent distress at this time. Patient and/or iw family updated on plan of care and expected duration. Pain level reassessed. Patient is alert, oriented x 3, equal unlabored respirations, skin warm/dry/pink. Patient states feeling better. Patient states symptoms have improved. Vital Signs: 07:20 BP 139 / 88; Pulse 53; Resp 16; Pulse Ox 100% on R/A; Weight 68.95 kg; Height 5 ft. 1 iw in. ; Pain 8/10; 09:47 BP 134 / 67; Pulse 57; Resp 16; Pulse Ox 99% on R/A; iw 07:20 Body Mass Index 28.72 (68.95 kg, 154.94 cm) iw 07:20 Pain Scale: Adult iw ED Course: 06:46 Patient arrived in ED. jj6 06:46 Jorge Be MD is Private Physician. jj6 06:46 Roseann Be MD is Private Physician. jj6 07:09 Warren Alva MD is Attending Physician. nikunj 07:20 Ciera Sweet, RN is Primary Nurse. iw 07:21 Triage completed. iw 07:30 Patient has correct armband on for positive identification. Client placed on continuous iw cardiac and pulse oximetry monitoring. NIBP monitoring applied. 07:37 Initial lab(s) drawn, by nc, sent to lab. Inserted saline lock: 20 gauge in right iw antecubital area, using aseptic technique. Blood collected. Flushed with 10 mL NS. 08:23 XRAY Chest (1 view) In Process Unspecified. EDMS 08:24 CT Abd/Pelvis - IV Contrast Only In Process Unspecified. EDMS 09:47 Urine collected: clean catch specimen, clear. jl7 09:47 No provider procedures requiring assistance completed. iw 09:58 Roseann Be MD is Referral Physician. nikunj Administered Medications: 08:17 Not Given (Patient Refused): [id number] mg IVP once; dilute with 10 mL 0.9% NaCl; jl7 give over 2 minutes 08:18 Not Given (Patient Refused): ns 0.9% 1000 ml IV at 1000 ml once; to be given as a bolus jl7 over 60 minutes 08:18 Not Given (Patient Refused): ondansetron 8 mg IVP once; over 2 minutes jl7 Medication: 08:20 VIS not applicable for this client. ana maria Outcome: 09:58 Discharge ordered by MD. calvin 10:05 Patient left the ED. bc6 Signatures: Dispatcher [employer] EDVA Warren Alva MD MD cha Williams, Irene, RN RN Dreek Villeda RN RN jl7 Afshan Parisi Breana bc6
--- NOTE | 2025-01-16 09:58 | EDPHYS ---
Physician Documentation [facility] Name: Linnea Morse Age: 69 yrs Sex: Female : 1955 Arrival Date: 01/16/2025 Time: 06:44 Bed 6 Private MD: Jorge Be; Roseann Be C ED Physician Warren Alva HPI: 01/16 09:48 This 69 yrs old Female presents to ER via Ambulatory with complaints of nikunj Abdominal Pain, Nausea/Vomiting. 09:48 The patient presents to the emergency department with nausea, vomiting, that is nikunj intermittent. Onset: The symptoms/episode began/occurred 1 day(s) ago. Possible causes: unknown. The symptoms are aggravated by nothing. The symptoms are alleviated by nothing. Associated signs and symptoms: Pertinent positives: nausea, vomiting. Severity of symptoms: At their worst the symptoms were moderate in the emergency department the symptoms are unchanged. The patient has not experienced similar symptoms in the past. Historical: - Allergies: 07:21 Codeine; iw - PSHx: 07:21 Cholecystectomy; iw - Immunization history:: Adult Immunizations. - Infectious Disease History:: Denies. - Social history:: Smoking status: Patient denies any tobacco usage or history of. ROS: 09:49 Constitutional: Negative for fever, chills, and weight loss, Eyes: Negative for injury, nikunj pain, redness, and discharge, ENT: Negative for injury, pain, and discharge, Neck: Negative for injury, pain, and swelling, Cardiovascular: Negative for chest pain, palpitations, and edema, Respiratory: Negative for shortness of breath, cough, wheezing, and pleuritic chest pain, Back: Negative for injury and pain, : Negative for injury, bleeding, discharge, and swelling, MS/Extremity: Negative for injury and deformity, Skin: Negative for injury, rash, and discoloration, Neuro: Negative for headache, weakness, numbness, tingling, and seizure, Psych: Negative for depression, anxiety, suicide ideation, homicidal ideation, and hallucinations, Allergy/Immunology: Negative for hives, rash, and allergies, Endocrine: Negative for neck swelling, polydipsia, polyuria, polyphagia, and marked weight changes, Hematologic/Lymphatic: Negative for swollen nodes, abnormal bleeding, and unusual bruising, 09:49 Abdomen/GI: Positive for abdominal pain, of the right upper quadrant and left upper quadrant, Exam: 09:49 Constitutional: This is a well developed, well nourished patient who is awake, alert, nikunj and in no acute distress. Head/Face: Normocephalic, atraumatic. Eyes: Pupils equal round and reactive to light, extra-ocular motions intact. Lids and lashes normal. Conjunctiva and sclera are non-icteric and not injected. Cornea within normal limits. Periorbital areas with no swelling, redness, or edema. ENT: Nares patent. No nasal discharge, no septal abnormalities noted. Tympanic membranes are normal and external auditory canals are clear. Oropharynx with no redness, swelling, or masses, exudates, or evidence of obstruction, uvula midline. Mucous membranes moist. Neck: Trachea midline, no thyromegaly or masses palpated, and no cervical lymphadenopathy. Supple, full range of motion without nuchal rigidity, or vertebral point tenderness. No Meningismus. Chest/axilla: Normal chest wall appearance and motion. Nontender with no deformity. No lesions are appreciated. Cardiovascular: Regular rate and rhythm with a normal S1 and S2. No gallops, murmurs, or rubs. Normal PMI, no JVD. No pulse deficits. Respiratory: Lungs have equal breath sounds bilaterally, clear to auscultation and percussion. No rales, rhonchi or wheezes noted. No increased work of breathing, no retractions or nasal flaring. Back: No spinal tenderness. No costovertebral tenderness. Full range of motion. Female : Normal external genitalia. Skin: Warm, dry with normal turgor. Normal color with no rashes, no lesions, and no evidence of cellulitis. MS/ Extremity: Pulses equal, no cyanosis. Neurovascular intact. Full, normal range of motion., bilateral aka Neuro: Awake and alert, GCS 15, oriented to person, place, time, and situation. Cranial nerves II-XII grossly intact. Motor strength 5/5 in all extremities. Sensory grossly intact. Cerebellar exam normal. Normal gait. Psych: Awake, alert, with orientation to person, place and time. Behavior, mood, and affect are within normal limits. 09:49 ECG was reviewed by the Attending Physician. 09:49 Abdomen/GI: Inspection: abdomen appears normal, Bowel sounds: normal, Palpation: nontender, in all quadrants, Liver: no appreciated palpable abnormalities, Hernia: not appreciated, 09:49 Musculoskeletal/extremity: ROM: no acute changes, intact in all extremities, full active range of motion, full passive range of motion, Circulation is intact in all extremities. Pulses: Sensation intact. Compartment Syndrome exam of affected extremity: is normal. DVT Exam: No signs of deep vein thrombosis. no pain, no swelling, no tenderness, negative Homans' sign noted on exam, no appreciated bluish discoloration, no erythema, no increased warmth, Vital Signs: 07:20 BP 139 / 88; Pulse 53; Resp 16; Pulse Ox 100% on R/A; Weight 68.95 kg; Height 5 ft. 1 iw in. ; Pain 8/10; 09:47 BP 134 / 67; Pulse 57; Resp 16; Pulse Ox 99% on R/A; iw 07:20 Body Mass Index 28.72 (68.95 kg, 154.94 cm) iw 07:20 Pain Scale: Adult iw MDM: 07:10 Medical Screening Exam initiated nikunj 09:52 Differential diagnosis: Nonspecific abd pain, gastritis, pancreatitis, appendicitis, nikunj diverticulitis, viral gastroenteritis, gastroenteritis. Data reviewed: vital signs, nurses notes, lab test result(s), EKG, radiologic studies, CT scan, plain films. Consideration of Admission/Observation Escalation of care including admission/observation considered. I considered the following discharge prescriptions or medication management in the emergency department Medications were administered in the Emergency Department. See MAR. Independent interpretation of the following test(s) in the Emergency Department EKG: See my EKG interpretation above. Test considered but Not performed: Ultrasound no abd usg. Historians other than the Patient: pt well informed. Care significantly affected by the following chronic conditions: see alyssa. Counseling: I had a detailed discussion with the patient and/or guardian regarding the historical points, exam findings, and any diagnostic results supporting the discharge/admit diagnosis, lab results, radiology results, the need for outpatient follow up, for definitive care, a family practitioner. 01/16 07:19 Order name: Basic Metabolic Panel; Complete Time: 08:18 [facility] 01/16 07:19 Order name: CBC with Diff; Complete Time: 08:18 [facility] 01/16 07:19 Order name: LFT's; Complete Time: 08:18 [facility] 01/16 07:19 Order name: Magnesium; Complete Time: 08:18 [facility] 01/16 07:19 Order name: NT PRO-BNP; Complete Time: 08:18 [facility] 01/16 07:19 Order name: PT-INR; Complete Time: 08:18 [facility] 01/16 07:19 Order name: Troponin HS; Complete Time: 08:18 [facility] 01/16 07:19 Order name: Lipase; Complete Time: 08:18 [facility] 01/16 07:19 Order name: UA Rfx Emmanuel Cult if indicated [facility] 01/16 07:19 Order name: XRAY Chest (1 view); Complete Time: 09:26 [facility] 01/16 07:19 Order name: CT Abd/Pelvis - IV Contrast Only; Complete Time: 09:26 [facility] 01/16 07:19 Order name: EKG; Complete Time: 07:20 [facility] 01/16 07:19 Order name: Cardiac monitoring; Complete Time: 08:17 [facility] 01/16 07:19 Order name: EKG - Nurse/Tech; Complete Time: 08:17 [facility] 01/16 07:19 Order name: IV Saline Lock; Complete Time: 07:36 [facility] 01/16 07:19 Order name: Labs collected and sent; Complete Time: 07:36 [facility] 01/16 07:19 Order name: O2 Per Protocol; Complete Time: 07:36 [facility] 01/16 07:19 Order name: O2 Sat Monitoring; Complete Time: 07:36 [facility] EC:49 Rate is 56 beats/min. Rhythm is regular. QRS Happy is Normal. MI interval is normal. QRS nikunj interval is normal. QT interval is normal. No Q waves. T waves are Normal. No ST changes noted. Clinical impression: Sinus bradycardia. Interpreted by me. Reviewed by me. Administered Medications: 08:17 Not Given (Patient Refused): [id number] mg IVP once; dilute with 10 mL 0.9% NaCl; jl7 give over 2 minutes 08:18 Not Given (Patient Refused): ns 0.9% 1000 ml IV at 1000 ml once; to be given as a bolus jl7 over 60 minutes 08:18 Not Given (Patient Refused): ondansetron 8 mg IVP once; over 2 minutes jl7 Disposition Summary: 01/16/25 09:58 Discharge Ordered Notes: Location: Home nikunj Problem: new nikunj Symptoms: have improved nikunj Condition: Stable nikunj Diagnosis - Abdominal tenderness nikunj - Nausea with vomiting, unspecified nikunj Followup: nikunj - With: Roseann Be MD - When: 2 - 3 days - Reason: Recheck today's complaints, Continuance of care, Re-evaluation by your physician Discharge Instructions: - Discharge Summary Sheet nikunj - Abdominal Pain, Adult nikunj - Nausea and Vomiting, Adult nikunj - Nausea, Adult nikunj - Nausea and Vomiting, Adult, [id number] nikunj - Abdominal Pain, Adult, [id number] nikunj - Nausea, Adult, [id number] nikunj Forms: - Medication Reconciliation Form nikunj - Antibiotic Education nikunj - Prescription Opioid Use nikunj - Patient Portal Instructions [facility] - [facility] Thank You Letter [facility] Prescriptions: - ondansetron 4 mg Oral Tablet,disintegrating - take 1 tablet ORAL route every 6 hours as needed for nausea and vomiting; 20 nikunj tablet; Refills: 0, Product Selection Permitted - Pepcid 20 mg Oral Tablet - take 1 tablet ORAL route every 12 hours for 10 days; 20 tablet; Refills: 0, nikunj Product Selection Permitted - dicyclomine 20 mg Oral tablet - take 1 tablet ORAL route 4 times per day; 28 tablet; Refills: 0, Product nikunj Selection Permitted Signatures: Dispatcher [employer] EDMS Warren Alva MD MD cha Williams, Irene, KIAN RN iw Derek Arias RN jl7 Corrections: (The following items were deleted from the chart) 07:20 07:20 BASIC METABOLIC PANEL+C.LAB.BRZ ordered. EDMS EDMS 07:20 07:20 CBC+H.LAB.BRZ ordered. EDMS EDMS 07:20 07:20 HEPATIC FUNCTION+C.LAB.BRZ ordered. EDMS EDMS 07:20 07:20 MAGNESIUM+C.LAB.BRZ ordered. EDMS EDMS 07:20 07:20 PROBNP+C.LAB.BRZ ordered. EDMS EDMS 07:20 07:20 PROTIME (+INR)+COAG.LAB.BRZ ordered. EDMS EDMS 07:20 07:20 Troponin High Sensitivity+C.LAB.BRZ ordered. EDMS EDMS 07:20 07:20 LIPASE+C.LAB.BRZ ordered. EDMS EDMS 07:20 07:20 UA Rfx Emmanuel Cult if indicated+U.LAB.BRZ ordered. EDMS EDMS
[2025-01-16 10:05] LABS: Sqamous Epithelial <5 /HPF (None Seen); Urine Culture Reflex Order NOT NEEDED; Urine Microscopic Reflex YN ORDER UMIC
[2025-01-16 16:34] VITALS: BP 134/67; O2SAT 99
== END 2025-01-16 10:05 | disposition home or self-care (01) ==
LOC: ER 06:44
DX: R10.812 Left upper quadrant abdominal tenderness (principal); R10.811 Right upper quadrant abdominal tenderness; R11.2 Nausea with vomiting, unspecified
CPT/HCPCS: 93005; 85025; 81001; 80048; 36415; 83735; 85610; 80076; 84484; 83690; 83880; 74177; 71045; 99283; Q9967; J2405; J7030